=== PATIENT | male | born 1995 | race Hispanic/Latino ===

== ENCOUNTER 2018-03-04 08:47 | Emergency (ER) | payer SELFPAY | END 2018-03-04 09:44 | disposition home or self-care (01) | LOC: EDH 08:47 | DX: B34.9 Viral infection, unspecified (principal); Z72.0 Tobacco use ==

== ENCOUNTER 2021-12-24 08:08 | Emergency (ER) | payer OTHER ==
[~2021-12-24] VITALS: Ht 170.2 cm; Wt 70.3 kg
[2021-12-24] MEDS ORDERED: ACETAMINOPHEN 500 MG TABLET PO SCH (08:30)
[2021-12-24] MEDS ORDERED: ACET-66 PO (09:51)
[2021-12-24] MEDS ORDERED: AMOX500C2 PO (09:51)
[2021-12-24 11:03] VITALS: BP 132/65
== END 2021-12-24 11:05 | disposition home or self-care (01) ==
LOC: EDH 08:08
DX: J02.0 Streptococcal pharyngitis (principal); Z20.822 Contact with and (suspected) exposure to COVID-19
CPT/HCPCS: 71045; 87635; 87804 ×2; 87880; 99284; C9803

== ENCOUNTER 2022-03-26 04:04 | Inpatient (IN) | payer OTHER ==
[~2022-03-26] VITALS: Ht 170.2 cm; Wt 64.4 kg
[~2022-03-26 04:04] MED LIST: ACET-66 PO; AMOX500C2 PO
[2022-03-26] MEDS ORDERED: ONDANSETRON 4MG INJ IVP ONE (04:30)
[2022-03-26] MEDS ORDERED: MORPHINE 4 MG SYG IVP ONE (04:30)
[2022-03-26] MEDS ORDERED: KETOROLAC 30MG VIAL (30MG/ML) IVP ONE (04:30)
[2022-03-26] MEDS ORDERED: MAG/ALUM/SIMETH 30 ML UDCUP PO ONE (04:30)
[2022-03-26] MEDS ORDERED: DICYCLOMINE HCL 10 MG/5 ML ML PO ONE (04:30)
[2022-03-26] MEDS ORDERED: LIDOCAINE HCL 2% VISCOUS 15 ML UDCUP PO ONE (04:30)
[2022-03-26 05:03] LABS: BASOPHILS % (AUTO) 1.2 % (0.0-5.0); EOSINOPHILS % (AUTO) 3.7 % (0.0-8.0); HEMATOCRIT 40.9 % (42-54); LYMPHOCYTES % (AUTO) 36.3 % (21.0-51.0); MEAN CORPUSCULAR HEMOGLOBIN 32.9 pg (27.0-33.0); MEAN CORPUSCULAR HGB CONC 32.5 g/dL (32.0-36.0); MEAN CORPUSCULAR VOLUME 101.2 fL (79-99); MONOCYTES % (AUTO) 12.7 % (3.0-13.0); NEUTROPHILS % (AUTO) 45.7 % (40.0-77.0); PLATELET COUNT (AUTO) 186 K/uL (130-400); RED BLOOD CELL COUNT(AUTO) 4.04 MIL/uL (4.50-6.20); WHITE BLOOD COUNT (AUTO) 5.7 K/uL (4.8-10.8)
[2022-03-26 05:17] LABS: CREATININE 0.7 mg/dL (0.5-1.5); POTASSIUM 3.6 mmol/L (3.5-5.1)
[2022-03-26 05:20] LABS: ALBUMIN 3.8 g/dL (3.5-5.0); BILIRUBIN,TOTAL 0.4 mg/dL (0.2-1.0); TOTAL PROTEIN, SERUM 8.6 g/dL (6.0-8.3)
[2022-03-26] MEDS ORDERED: ONDANSETRON 4MG INJ IV PRN (07:30)
[2022-03-26] MEDS ORDERED: HYDROMORPHONE 0.5 MG SYG (0.5MG/0.5ML) IVP PRN ×3 (07:30)
[2022-03-26] MEDS ORDERED: ACETAMINOPHEN 325 MG TAB PO PRN ×2 (07:30)
[2022-03-26] MEDS: BISACODYL 5 MG TABLET.DR PO SCH ×2 (08:08→20:54)
[2022-03-26] MEDS: FAMOTIDINE 20MG VIAL IV SCH ×2 (08:08→20:53)
[2022-03-26] MEDS: LACTATED RINGERS 1000ML 1,000 ML IV SCH ×3 (08:08→20:50)
[2022-03-26] MEDS: ENOXAPARIN SODIUM 40 MG/0.4 ML SYRINGE SQ SCH (08:09)
[2022-03-26 08:36] LABS: THYROID STIMULATING HORMONE 2.87 uIU/mL (0.36-3.74)
[2022-03-26] MEDS ORDERED: LORAZEPAM 2 MG/ML 1 ML VIAL IVP PRN ×2 (18:30)
[2022-03-26] MEDS ORDERED: COMPOUND IV REFRIGERATED 1 EACH IVSOLN MISC PRN (18:30)
[2022-03-26] MEDS ORDERED: PHARMACY COMMUNICATION MISC PRN (18:30)
[2022-03-26 19:19] LABS: AMPHET/METH SCREEN,URINE NEGATIVE (NEGATIVE); BARBITURATE SCREEN, URINE NEGATIVE (NEGATIVE); BENZODIAZEPINES SCREEN,URINE NEGATIVE (NEGATIVE); CANNABINOID SCREEN,URINE NEGATIVE (NEGATIVE); COCAINE SCREEN,URINE NEGATIVE (NEGATIVE); OPIATE SCREEN,URINE NEGATIVE (NEGATIVE); PHENCYCLIDINE SCREEN,URINE NEGATIVE (NEGATIVE)
[2022-03-26 19:40] VITALS: BP 129/73
[2022-03-26] MEDS: THIAMINE HCL 100 MG, FOLIC ACID 1 MG, M.V.I. IV [ADULT] 10 ML in 0.9%NACL 1000ML 1,000 ML IV SCH (20:54)
[2022-03-26 23:26] VITALS: BP 121/75
[2022-03-27] VITALS (7 sets, daily range): BP systolic 106–129; BP diastolic 62–86
[2022-03-27] MEDS: LACTATED RINGERS 1000ML 1,000 ML IV SCH ×4 (03:30→22:46)
[2022-03-27] MEDS: FAMOTIDINE 20MG VIAL IV SCH ×2 (09:28→20:25)
[2022-03-27] MEDS: BISACODYL 5 MG TABLET.DR PO SCH ×2 (09:28→20:29)
[2022-03-27] MEDS: ENOXAPARIN SODIUM 40 MG/0.4 ML SYRINGE SQ SCH (09:28)
[2022-03-27] MEDS ORDERED: HYDROMORPHONE 0.5 MG SYG (0.5MG/0.5ML) IVP PRN (19:30)
[2022-03-27] MEDS: THIAMINE HCL 100 MG, FOLIC ACID 1 MG, M.V.I. IV [ADULT] 10 ML in 0.9%NACL 1000ML 1,000 ML IV SCH (20:25)
[2022-03-28 05:06] VITALS: BP 124/84
[2022-03-28 05:32] LABS: BASOPHILS % (AUTO) 0.5 % (0.0-5.0); EOSINOPHILS % (AUTO) 2.1 % (0.0-8.0); HEMATOCRIT 39.6 % (42-54); MEAN CORPUSCULAR HEMOGLOBIN 33.7 pg (27.0-33.0); MEAN CORPUSCULAR HGB CONC 34.3 g/dL (32.0-36.0); MEAN CORPUSCULAR VOLUME 98.3 fL (79-99); NEUTROPHILS % (AUTO) 70.9 % (40.0-77.0); PLATELET COUNT (AUTO) 152 K/uL (130-400); RED BLOOD CELL COUNT(AUTO) 4.03 MIL/uL (4.50-6.20); RED CELL DISTRIBUTION WIDTH 11.7 % (11.0-15.5); WHITE BLOOD COUNT (AUTO) 8.7 K/uL (4.8-10.8)
[2022-03-28 05:42] LABS: INR 1.05 (0.85-1.15); PROTHROMBIN TIME 11.4 SEC (9.6-11.6)
[2022-03-28 05:43] LABS: PARTIAL THROMBOPLASTIN TIME 29.5 SEC (26.3-35.5)
[2022-03-28 05:46] LABS: % IRON SATURATION 30.9 % (30-44)
[2022-03-28 05:48] LABS: ALBUMIN 3.2 g/dL (3.5-5.0); CARBON DIOXIDE 32 mmol/L (21-32); CHLORIDE 98 mmol/L (101-111); CREATININE 0.6 mg/dL (0.5-1.5); GLOMERULAR FILTR. RATE CALC 169 mL/min (>60); GLUCOSE,RANDOM 107 mg/dL (70-105); PHOSPHORUS 3.2 mg/dL (2.5-4.9); POTASSIUM 3.9 mmol/L (3.5-5.1); SODIUM SERUM 137 mmol/L (136-145); UREA NITROGEN, BLOOD 3 mg/dL (7-18)
[2022-03-28] MEDS: LACTATED RINGERS 1000ML 1,000 ML IV SCH (05:59)
[2022-03-28 06:16] LABS: ALANINE AMINOTRANSFERASE 93 U/L (12-78); ASPARTATE AMINOTRANSFERASE 107 U/L (10-37); BILIRUBIN,TOTAL 1.9 mg/dL (0.2-1.0); TOTAL PROTEIN, SERUM 7.5 g/dL (6.0-8.3)
[2022-03-28 08:00] VITALS: BP 127/80
[2022-03-28] MEDS: FAMOTIDINE 20MG VIAL IV SCH (08:44)
[2022-03-28] MEDS: BISACODYL 5 MG TABLET.DR PO SCH (08:44)
[2022-03-28] MEDS: ENOXAPARIN SODIUM 40 MG/0.4 ML SYRINGE SQ SCH (08:45)
[2022-03-28 12:00] VITALS: BP 117/77
[2022-03-28] MEDS ORDERED: THIA100T78 PO (12:17)
[2022-03-28] MEDS ORDERED: FOLI0.4T6 PO (12:17)
== END 2022-03-28 14:10 | disposition home or self-care (01) | DRG 439 ==
LOC: EDH 04:04 → EDHIP 07:18 → 3CH 14:27
PROVIDERS: ADMIT Internal Medicine; ATTEND Internal Medicine
DX: K85.20 Alcohol induced acute pancreatitis without necrosis or infection (principal); F10.239 Alcohol dependence with withdrawal, unspecified; E78.1 Pure hyperglyceridemia; E86.1 Hypovolemia; F10.229 Alcohol dependence with intoxication, unspecified; Y90.9 Presence of alcohol in blood, level not specified
CPT/HCPCS: 36415; 76705; 80053; 80061; 80305; 82607; 82728; 82746; 83540; 83550; 83690; 83735; 84100; 84145; 84443; 85025; 85045; 85610; 85730; G0378; J1170; J1650; J1885; J2270; J2405; J3411; J3490; J7030; J7120